=== PATIENT | male | born 1990 | race African-American/Black ===

== ENCOUNTER → 2021-11-16 | Emergency (ER) | payer MEDICAID ==
[~2021-11-16] VITALS: Ht 188 cm; Wt 160.0 kg
[~2021-11-16] MED LIST: NAPR-681 PO
[2021-11-16 02:41] VITALS: BP 143/64
== END | disposition home or self-care (01) ==
LOC: ER 02:29
DX: M54.50 Low back pain, unspecified (principal); G89.29 Other chronic pain
CPT/HCPCS: 99281

== ENCOUNTER 2022-01-24 22:18 | Emergency (ER) | payer SELFPAY ==
[~2022-01-24] VITALS: Ht 188 cm; Wt 162.6 kg
[2022-01-24 22:21] VITALS: BP 137/88
== END 2022-01-24 22:54 | disposition home or self-care (01) ==
LOC: ER 22:18
DX: G89.29 Other chronic pain (principal); M54.9 Dorsalgia, unspecified
CPT/HCPCS: 99281